=== PATIENT | female | born 1995 | race African-American/Black ===

== ENCOUNTER 2022-08-28 09:34 | Emergency (ER) | payer OTHER ==
[2022-08-28 09:42] VITALS: BP 134/71; PULSE 94; RESP 18; TEMP 98; BMI 39.6
[2022-08-28 10:58] LABS: URINE APPEARANCE CLOUDY; URINE BILIRUBIN NEGATIVE (NEGATIVE); URINE COLOR YELLOW; URINE GLUCOSE (UA) NEGATIVE (NEGATIVE); URINE KETONE NEGATIVE (NEGATIVE); URINE LEUK ESTERASE NEGATIVE (NEGATIVE); URINE NITRITE NEGATIVE (NEGATIVE); URINE PROTEIN NEGATIVE (NEGATIVE)
== END 2022-08-28 11:49 | disposition home or self-care (01) ==
LOC: JER 09:34
DX: R10.9 Unspecified abdominal pain (principal); R35.0 Frequency of micturition; R30.0 Dysuria; R39.15 Urgency of urination; N30.90 Cystitis, unspecified without hematuria
CPT/HCPCS: 81003; 87086; 99283-25

== ENCOUNTER 2022-10-18 21:05 | Emergency (ER) | payer OTHER ==
[2022-10-18 21:26] VITALS: BP 142/88; PULSE 83; RESP 17; TEMP 98.3; BMI 38.9
[2022-10-18 23:10] LABS: POTASSIUM 3.9 mmol/L (3.5-5.1)
[2022-10-18 23:12] LABS: ALBUMIN 2.9 g/dl (3.4-5.0); BLOOD UREA NITROGEN 14.8 mg/dL (7-18)
[2022-10-18 23:16] LABS: BILIRUBIN,TOTAL 0.3 mg/dL (0.2-1); CREATININE 0.6 mg/dL (0.55-1.3); TOT PROT 6.3 g/dl (6.4-8.2)
[2022-10-18 23:20] LABS: HEMATOCRIT 33.2 % (32.4-45.2); HEMOGLOBIN 10.8 GM/dL (10.7-15.3); MCH 25.6 pg (25.7-33.7); MCHC 32.6 g/dl (32.0-36.0); MEAN CELL VOLUME 78.6 fl (80-96); MEAN PLT VOLUME 8.4 fl (7.5-11.1); PLATELET COUNT 291 10^3/uL (134-434); RBC 4.22 M/mm3 (3.60-5.2); RDW 15.6 % (11.6-15.6); WHITE BLOOD COUNT 9.6 K/mm3 (4.0-10.0)
[2022-10-19 08:21] LABS: ANISOCYTOSIS 2+; MACROCYTOSIS 0; OVALOCYTE 2+; TEAR DROP CELLS 2+
== END 2022-10-19 01:33 | disposition home or self-care (01) ==
LOC: JER 21:05
DX: O90.89 Other complications of the puerperium, not elsewhere classified (principal); R60.0 Localized edema; I49.1 Atrial premature depolarization; R77.0 Abnormality of albumin
CPT/HCPCS: 36415; 71046-TC-FY; 80053; 82550; 84484; 85025; 93005; 93010; 93970-TC; 99285-25